=== PATIENT | male | born 1990 ===

== ENCOUNTER 2017-06-01 20:42 | Emergency (ER) | payer SELFPAY ==
[2017-06-01 22:13] VITALS: BP 128/77
[2017-06-01] MEDS ORDERED: hydrOXYzine HCL TAB* 25 MG PO ONE (22:38)
--- NOTE | 2017-06-01 22:43 | UC ---
Skin Complaint HPI - HPI Summary HPI Summary: 26 yo male with rash x 3 weeks started on arms pruritic no recent illness - History of Current Complaint Chief Complaint: UCRash Time Seen by Provider: 06/01/17 22:20 Stated Complaint: RASH/BITES Hx Obtained From: Patient Onset/Duration: Gradual Onset, Lasting Weeks Timing: Constant Onset Severity: Mild Current Severity: Moderate Pain Intensity: 0 Pain Scale Used: 0-10 Numeric Location: Diffuse - trunk>arms>thighs>lower legs...none on face or neck Character: Pruritus, Redness Aggravating Factor(s): Nothing Alleviating Factor(s): Nothing Associated Signs & Symptoms: Positive: Rash - Allergy/Home Medications Allergies/Adverse Reactions: Allergies Allergy/AdvReac Type Severity Reaction Status Date / Time latex Allergy Unknown Rash Verified 06/01/17 22:06 Review of Systems Constitutional: Negative Skin: Rash Eyes: Negative ENT: Negative Respiratory: Negative Cardiovascular: Negative Gastrointestinal: Negative Genitourinary: Negative Motor: Negative Neurovascular: Negative Musculoskeletal: Negative Neurological: Negative Psychological: Negative Is Patient Immunocompromised?: No All Other Systems Reviewed And Are Negative: Yes PMH/Surg Hx/FS Hx/Imm Hx Previously Healthy: Yes - Surgical History Surgical History: Yes Surgery Procedure, Year, and Place: DENTAL EXTRACTIONS - Family History Known Family History: Positive: Hypertension - Social History Alcohol Use: None Substance Use Type: None Smoking Status (MU): Heavy Every Day Tobacco Smoker Type: Cigarettes Amount Used/How Often: 1 PPD Physical Exam Triage Information Reviewed: Yes Appearance: Well-Appearing, No Pain Distress, Well-Nourished Vital Signs: Initial Vital Signs Temp 97.6 F 06/01/17 22:06 Pulse 64 06/01/17 22:06 Resp 17 06/01/17 22:06 BP 128/77 06/01/17 22:06 Pulse Ox 99 06/01/17 22:06 Vital Signs Reviewed: Yes Eyes: Positive: Conjunctiva Clear ENT: Negative: Nasal congestion, Nasal drainage, Trismus, Muffled voice, Hoarse voice Neck: Positive: Supple, Nontender, No Lymphadenopathy Respiratory: Positive: Lungs clear, Normal breath sounds, No respiratory distress Cardiovascular: Positive: RRR Musculoskeletal: Positive: ROM Intact, No Edema Neurological: Positive: Muscle Tone Normal Psychological Exam: Normal Skin: Positive: rashes - tntc ovoid lesions all < 5mm, many with scale, no herald lesion, no scabs or burrows Course/Dx - Diagnoses Provider Diagnoses: acute rash, ? guttate psoriasis vs other Discharge - Sign-Out/Discharge Documenting (check all that apply): Discharge - Discharge Plan Condition: Stable Disposition: HOME Prescriptions: hydrOXYzine HCL TAB* [Atarax TAB*] 25 - 50 mg PO BEDTIME PRN #14 tab PRN Reason: Itching Triamcinolone 0.5% CREAM(NF) [Triamcinolone 0.5% CREAM*] 1 applic TOPICAL QID # 60 tube Patient Education Materials: Acute Rash (ED) Referrals: Atiya Weir [Medical Doctor] - 1 Week (ask for appt on [facility]) Additional Instructions: I am unsure of the cause of your rash I think you should see a special delivery messenger ? guttate psoriasis ? pityriasis rosea ? other - Billing Disposition and Condition Condition: STABLE Disposition: HOME
== END 2017-06-01 22:45 | disposition home or self-care (01) ==
LOC: UCCORT 20:42
DX: R21 Rash and other nonspecific skin eruption (principal); Z91.040 Latex allergy status
CPT/HCPCS: 99212; A9270-GY; G0463

== ENCOUNTER 2017-07-07 13:57 | Emergency (ER) | payer SELFPAY ==
[2017-07-07 14:16] VITALS: BP 125/82
--- NOTE | 2017-07-07 15:47 | UC ---
Skin Complaint HPI - HPI Summary HPI Summary: skin avulsion from a custom grinder a few hours ago on left index finger no bleeding---full rom, n/m/c intact - History of Current Complaint Chief Complaint: UCLaceration Time Seen by Provider: 07/07/17 15:41 Stated Complaint: FINGER LAC Hx Obtained From: Patient Onset/Duration: Sudden Onset, Lasting Hours Timing: Constant Onset Severity: Moderate Current Severity: Moderate Pain Intensity: 8 Pain Scale Used: 0-10 Numeric Location: Discrete Aggravating Factor(s): Nothing Alleviating Factor(s): Nothing Associated Signs & Symptoms: Positive: Negative Related History: Trauma - Allergy/Home Medications Allergies/Adverse Reactions: Allergies Allergy/AdvReac Type Severity Reaction Status Date / Time latex Allergy Unknown Rash Verified 07/07/17 14:16 Review of Systems Constitutional: Negative Skin: Other - 1 mm width 5 mm length skin avulsion left index finger just proximal from dip on palmar aspect Eyes: Negative ENT: Negative Respiratory: Negative Cardiovascular: Negative Gastrointestinal: Negative Genitourinary: Negative Motor: Negative Neurovascular: Negative Musculoskeletal: Negative Neurological: Negative Psychological: Negative Is Patient Immunocompromised?: No All Other Systems Reviewed And Are Negative: Yes PMH/Surg Hx/FS Hx/Imm Hx Previously Healthy: Yes - Surgical History Surgical History: Yes Surgery Procedure, Year, and Place: DENTAL EXTRACTIONS - Family History Known Family History: Positive: Hypertension - Social History Occupation: Employed Full-time Lives: With Family Alcohol Use: Rare Substance Use Type: None Smoking Status (MU): Heavy Every Day Tobacco Smoker Type: Cigarettes Amount Used/How Often: 1 PPD Physical Exam Triage Information Reviewed: Yes Appearance: Well-Appearing, No Pain Distress, Well-Nourished Vital Signs: Initial Vital Signs Temp 98.9 F 07/07/17 14:12 Pulse 111 07/07/17 14:12 Resp 18 07/07/17 14:12 BP 125/82 07/07/17 14:12 Pulse Ox 98 07/07/17 14:12 Vital Signs Reviewed: Yes Eye Exam: Normal Eyes: Positive: Conjunctiva Clear ENT Exam: Normal ENT: Positive: Normal ENT inspection, Hearing grossly normal. Negative: Muffled voice, Hoarse voice Dental Exam: Normal Neck exam: Normal Neck: Positive: Supple, Nontender Respiratory Exam: Normal Respiratory: Positive: Chest non-tender, No respiratory distress, No accessory muscle use Cardiovascular Exam: Normal Cardiovascular: Positive: RRR, Pulses Normal, Brisk Capillary Refill Musculoskeletal Exam: Normal Musculoskeletal: Positive: Strength Intact, ROM Intact, No Edema Neurological Exam: Normal Neurological: Positive: Alert, Muscle Tone Normal Psychological Exam: Normal Skin Exam: Normal Skin: Positive: Other - 1 mm width 5 mm length skin avulsion left index finger just proximal from dip on palmar aspect Re-Evaluation - Re-Evaluation First Eval Change: Improved - telfa and tube gauze applied, Course/Dx - Course Course Of Treatment: tylenol, ibuprofen, soap and water wash bid, keflex follow with pcp - Diagnoses Provider Diagnoses: skin avulsion left second finger Discharge - Sign-Out/Discharge Documenting (check all that apply): Discharge/Admit/Transfer - Discharge Plan Condition: Stable Disposition: HOME Prescriptions: Cephalexin CAP* [Keflex CAP*] 500 mg PO QID #28 cap Patient Education Materials: Skin Avulsion (ED) Referrals: [facility] [place] [facility] [Outside] - If Needed - Billing Disposition and Condition Condition: STABLE Disposition: HOME
== END 2017-07-07 15:55 | disposition home or self-care (01) ==
LOC: UCEAST 13:57
DX: S61.211A Laceration without foreign body of left index finger without damage to nail, initial encounter (principal); W29.8XXA Contact with other powered hand tools and household machinery, initial encounter; Y93.9 Activity, unspecified; Y92.9 Unspecified place or not applicable; Z91.040 Latex allergy status; F17.210 Nicotine dependence, cigarettes, uncomplicated
CPT/HCPCS: 99212; G0463

== ENCOUNTER 2017-07-12 14:27 | Emergency (ER) | payer SELFPAY ==
[2017-07-12 15:39] VITALS: BP 122/71
[2017-07-12] MEDS ORDERED: Albuterol HFA INHALER* 8 gm MDI INH ONE (15:52)
[2017-07-12] MEDS ORDERED: predniSONE TAB* 20 MG PO ONE (15:53)
--- NOTE | 2017-07-12 16:02 | UC ---
Respiratory Complaint HPI - HPI Summary HPI Summary: 26 yo male with cough and sore throat x 1 day chest feels tight productive at times he is a smoker no f/c no cp or sob - History of Current Complaint Chief Complaint: UCGeneralIllness Stated Complaint: ST/COUGH Time Seen by Provider: 07/12/17 15:33 Hx Obtained From: Patient Onset/Duration: Gradual Onset, Lasting Hours Timing: Constant Severity Initially: Mild Severity Currently: Moderate Pain Intensity: 5 Pain Scale Used: 0-10 Numeric Character: Cough: Productive Aggravating Factors: Nothing Alleviating Factors: Nothing Associated Signs And Symptoms: Positive: Negative - Allergies/Home Medications Allergies/Adverse Reactions: Allergies Allergy/AdvReac Type Severity Reaction Status Date / Time latex Allergy Unknown Rash Verified 07/07/17 14:16 PMH/Surg Hx/FS Hx/Imm Hx Previously Healthy: Yes - Surgical History Surgical History: Yes Surgery Procedure, Year, and Place: DENTAL EXTRACTIONS - Family History Known Family History: Positive: Hypertension Family History: unsure of most of his family hx - Social History Alcohol Use: Rare Substance Use Type: None Smoking Status (MU): Heavy Every Day Tobacco Smoker Type: Cigarettes Amount Used/How Often: 1 PPD Length of Time of Smoking/Using Tobacco: 10 YRS Review of Systems Constitutional: Negative Skin: Negative Eyes: Negative ENT: Sore Throat Respiratory: Cough Cardiovascular: Negative Gastrointestinal: Negative Genitourinary: Negative Motor: Negative Neurovascular: Negative Musculoskeletal: Negative Neurological: Negative Psychological: Negative Is Patient Immunocompromised?: No All Other Systems Reviewed And Are Negative: Yes Physical Exam Triage Information Reviewed: Yes Appearance: Well-Appearing, No Pain Distress, Well-Nourished Vital Signs: Initial Vital Signs Temp 99.6 F 07/12/17 15:34 Pulse 95 07/12/17 15:34 Resp 18 07/12/17 15:34 BP 122/71 07/12/17 15:34 Pulse Ox 98 07/12/17 15:34 Vital Signs Reviewed: Yes Eyes: Positive: Conjunctiva Clear ENT: Positive: Hearing grossly normal, Pharyngeal erythema, Uvula midline. Negative: Nasal congestion, Nasal drainage, Tonsillar swelling, Tonsillar exudate, Trismus, Muffled voice, Hoarse voice, Dental tenderness, Sinus tenderness Neck: Positive: Supple, Nontender, No Lymphadenopathy Respiratory: Positive: Lungs clear, Normal breath sounds, No respiratory distress, No accessory muscle use, Wheezing - pronounced wheezing with forced expiration UC Diagnostic Evaluation - Laboratory O2 Sat by Pulse Oximetry: 98 - normal/not hypoxic Respiratory Course/Dx - Differential Dx/Diagnosis Provider Diagnoses: acute bronchitis with bronchospasm Discharge - Sign-Out/Discharge Documenting (check all that apply): Discharge/Admit/Transfer - Discharge Plan Condition: Stable Disposition: HOME Prescriptions: Amoxicillin PO (*) [Amoxicillin 875 MG (*)] 875 mg PO BID #14 tab predniSONE [Deltasone] 40 mg PO DAILY #10 tab Patient Education Materials: How to Use a Metered-Dose Inhaler (ED), Acute Bronchitis (ED) Forms: *Work Release Referrals: STEVE Hudson [Primary Care Provider] - 4 Days (if not better) Additional Instructions: recheck for new or wrosening symptoms - Billing Disposition and Condition Condition: STABLE Disposition: HOME
== END 2017-07-12 16:12 | disposition home or self-care (01) ==
LOC: UCCORT 14:27
DX: J20.9 Acute bronchitis, unspecified (principal); F17.210 Nicotine dependence, cigarettes, uncomplicated
CPT/HCPCS: 99213; A9270-GY; G0463; J7512